=== PATIENT | female | born 1960 | race Caucasian/White ===

== ENCOUNTER 2018-06-05 09:03 | Outpatient (CLI) | payer BC | END 2018-06-05 09:04 | disposition home or self-care (01) | LOC: CTENTCT 09:03 | PROVIDERS: ATTEND Otolaryngology Plastic Surgery within the Head & Neck | DX: J32.9 Chronic sinusitis, unspecified (principal) | CPT/HCPCS: 70486 ==

== ENCOUNTER 2018-06-05 12:21 | Outpatient (CLI) | payer BC | END 2018-06-05 12:22 | disposition home or self-care (01) | LOC: BICMAMMO 12:21 | PROVIDERS: ATTEND Family Medicine | DX: Z12.31 Encounter for screening mammogram for malignant neoplasm of breast (principal); N64.89 Other specified disorders of breast; Z80.3 Family history of malignant neoplasm of breast | CPT/HCPCS: 77063; 77067 ==

== ENCOUNTER 2018-06-21 08:22 | Day surgery (SDC) | payer BC ==
[2018-06-20 15:01] VITALS: BMI 29.2
[2018-06-21] MEDS ORDERED: Oxymetazoline HCl 0.05% ( 15 ML ) ONE ×2 (08:46→11:17)
[2018-06-21] MEDS ORDERED: Lidocaine 1% w/Epinephrine 1:100K 30 ML VIAL ONE (11:17)
[2018-06-21] MEDS ORDERED: Fentanyl 100 MCG/2 ML VIAL ONE ×2 (11:35→12:23)
[2018-06-21 11:47] LABS: Hemoglobin 14.4 g/dL (12.0-16.0)
[2018-06-21] MEDS ORDERED: Succinylcholine Chloride 20 MG/ML 10 ml SYRINGE FS ONE (13:41)
[2018-06-21] MEDS ORDERED: Ondansetron HCl/PF 4 MG/2 ML Vial ONE (13:41)
[2018-06-21] MEDS ORDERED: Lidocaine 1% PF 5 ML VIAL ONE (13:41)
[2018-06-21] MEDS ORDERED: Dexamethasone 20 MG/5 ML VIAL ONE (13:41)
[2018-06-21] MEDS ORDERED: PROPOFOL 200 MG/20 ML VIAL ONE (13:41)
[2018-06-21] MEDS ORDERED: HYDROcodone/Acetaminophen 5/325 mg Tablet ONE ×2 (13:42→13:44)
--- NOTE | 2018-06-22 12:23 | OP ---
DATE OF PROCEDURE: 06/21/2018 PREOPERATIVE DIAGNOSES: 1. Chronic rhinosinusitis. 2. Bilateral inferior turbinate hypertrophy. 3. Nasal obstruction. POSTOPERATIVE DIAGNOSES: 1. Chronic rhinosinusitis. 2. Bilateral inferior turbinate hypertrophy. 3. Nasal obstruction. PROCEDURES: 1. Bilateral endoscopic sinus surgery, total ethmoidectomies. 2. Bilateral endoscopic sinus surgery, maxillary antrostomies. 3. Bilateral endoscopic sinus surgery, frontal sinusotomies. 4. Bilateral inferior turbinate submucosal resection. SURGEON: Andi Mac M.D. ESTIMATED BLOOD LOSS: 20 mL. COMPLICATIONS: None. ANESTHESIA: GETA. PROCEDURE IN DETAIL: The patient was taken to the operating room and placed on the table. General e ndotracheal anesthesia was obtained by the Anesthesia staff. Tube was secured in the left lower lip. The patient was then placed in the beach chair position. Afrin pledgets were placed in the nasal c avity as the patient was prepped and draped for standard nasal procedure. Following this, Afrin pled gets were removed. The 0 degree endoscope was advanced in the nasal cavity. 1% lidocaine with 1:100 ,000 epinephrine was injected into the inferior turbinates, middle turbinates and lateral nasal wall bilaterally. Following this, the middle turbinates were identified and were gently medialized using a [place] elevator. The uncinate process was then visualized bilaterally and was anteriorly fractured using a ball-ended probe. The uncinate process was then removed using upbiting [place] forceps and the straight microdebrider. Following this, the natural maxillary sinus ostia were gently widened u sing the straight microdebrider. On the right side, a curved microdebrider and the 45 degree endosco pe was used to visualize the internal aspect of the right maxillary sinus. A cyst hanging from the s uperior orbital wall was removed using a curved microdebrider. Following this, the ethmoidal bulla w as identified bilaterally and was punctured on its medial and inferior aspect with the straight micro debrider. Ethmoidal bulla was removed using the microdebrider and upbiting [place] forceps. Follo wing this, the grand lamella was identified and was punctured into the posterior ethmoidal cells usin g the 0 degree microdebrider. Working from posterior to anterior, the ethmoidal cells were opened in a mucosal-sparing technique bilaterally. Following this, the 45-degree endoscope and the curved kenny rodebrider were used to further open the frontal recess cells bilaterally as well as identify and wid en the frontal sinus ostia using the curved microdebrider bilaterally. Following this, the inferior turbinates were punctured on the anterior inferior aspect using the submucosal microdebrider and subm ucosal resection was performed. Following this, the nasal cavity was irrigated. MeroPacks were plac ed within the middle meatus. The patient tolerated the procedure well.
== END 2018-06-21 14:18 | disposition home or self-care (01) ==
LOC: SDC 08:22
PROVIDERS: ATTEND Otolaryngology Plastic Surgery within the Head & Neck
DX: J32.4 Chronic pansinusitis (principal); J34.3 Hypertrophy of nasal turbinates; R51 Headache; J34.2 Deviated nasal septum; E78.00 Pure hypercholesterolemia, unspecified; Z87.891 Personal history of nicotine dependence; Z88.2 Allergy status to sulfonamides; Z88.8 Allergy status to other drugs, medicaments and biological substances
CPT/HCPCS: 85014; 85018; 93005; 93010; 96374; J1100; J2001; J2405; J2704; J3010